=== PATIENT | female | born 1975 ===

== ENCOUNTER 2017-10-26 08:27 | Emergency (ER) | payer BC ==
[2017-10-26 08:40] VITALS: BP 116/69
[2017-10-26] MEDS ORDERED: Ondansetron ODT TAB* 4 MG PO ONE (09:04)
[2017-10-26] MEDS ORDERED: Ondansetron ODT TAB* 4 MG ONE (09:07)
--- NOTE | 2017-10-26 09:10 | UC ---
Cardiac HPI - HPI Summary HPI Summary: WOKE UP 6:30 AM TODAY WITH SHARP PAIN IN BETWEEN SHOULDER BLADES AND HEAVINESS IN CHEST. FEELS SOB DUE TO THE DISCOMFORT AND HAS SIGNIFICANT NAUSEA. NOT WORSE WITH EXERTION. HAD 2 EPISODES WATERY DIARRHEA. FLEW TO [place] 3 DAYS AGO AND FLEW BACK FROM YESTERDAY. IS A SMOKER. - History of Current Complaint Chief Complaint: UCChestPain Stated Complaint: CHEST PAIN DIARRHEA VOMITING Time Seen by Provider: 10/26/17 08:33 Hx Obtained From: Patient Hx Last Menstrual Period: hysterectomy 2007 Onset/Duration: Sudden Onset, Lasting Hours, Still Present Timing: Constant Initial Severity: Moderate Current Severity: Moderate Pain Intensity: 5 Chest Pain Location: Mid Sternal Character: Heaviness Aggravating Factor(s): Nothing Alleviating Factor(s): Nothing Associated Signs & Symptoms: Positive: Chest Pain, Nausea/Vomiting, Back Pain - Allergy/Home Medications Allergies/Adverse Reactions: Allergies Allergy/AdvReac Type Severity Reaction Status Date / Time ibuprofen Allergy Anaphylatic Verified 10/26/17 08:51 Shock levofloxacin [From Levaquin] Allergy Difficulty Verified 10/26/17 08:51 Breathing Penicillins Allergy Hives Verified 10/26/17 08:51 Sulfa (Sulfonamide Allergy Hives Verified 10/26/17 08:51 Antibiotics) Home Medications: Home Medications Topiramate [Topiramate ER 50 mg cap] 50 mg PO QPM 10/26/17 [History Confirmed ] PMH/Surg Hx/FS Hx/Imm Hx Previously Healthy: Yes - Surgical History Surgical History: Yes Surgery Procedure, Year, and Place: TOTAL HYSTERECTOMY, LAPAROSCOPY X 2 - scar tissue - Family History Known Family History: Positive: Cardiac Disease - Social History Alcohol Use: None Substance Use Type: None Smoking Status (MU): Heavy Every Day Tobacco Smoker Type: Cigarettes Amount Used/How Often: <1/2ppd Length of Time of Smoking/Using Tobacco: 25 years Have You Smoked in the Last Year: Yes - Immunization History Most Recent Influenza Vaccination: 2014/2015 Review of Systems Constitutional: Negative Respiratory: Shortness Of Breath Cardiovascular: Chest Pain Gastrointestinal: Diarrhea, Nausea All Other Systems Reviewed And Are Negative: Yes Physical Exam Triage Information Reviewed: Yes Appearance: Well-Nourished, Ill-Appearing - MOD, Pain Distress - MOD Vital Signs: Initial Vital Signs Temp 99.5 F 10/26/17 08:37 Pulse 94 10/26/17 08:37 Resp 18 10/26/17 08:37 BP 116/69 10/26/17 08:37 Pulse Ox 99 10/26/17 08:37 Vital Signs Reviewed: Yes Eyes: Positive: Conjunctiva Clear ENT: Positive: Hearing grossly normal Neck: Positive: Supple Respiratory Exam: Normal Cardiovascular Exam: Normal Abdomen Description: Positive: Soft Musculoskeletal: Positive: No Edema Neurological: Positive: Alert Psychological: Positive: Age Appropriate Behavior Skin: Negative: rashes Diagnostics - EKG Cardiac Rate: NL - 92BPM Cardiac Rhythm: Sinus: Normal Ectopy: None ST Segment: Normal - Assessment/Plan Course Of Treatment: TO [facility] BY PRIVATE CAR. NEED TO R/O UNDERLYING CARDIAC CAUSE, PE - Clinical Impression Provider Diagnoses: CHEST PAIN Discharge - Discharge Plan Condition: Stable Disposition: OTHER Discharge Disposition Comment: TO [facility] ED BY PRIVATE CAR Patient Education Materials: Chest Pain (ED) Referrals: Rochelle Devine MD [Medical Doctor] - Additional Instructions: GO DIRECTLY TO THE [facility] ED FOR FURTHER EVALUATION. YOU HAVE DECLINED AMBULANCE TRANSFER. BE ADVISED THAT BY NOT TRAVELING IN A MONITORED SETTING YOU COULD BE RISKING WORSENING OF YOUR CONDITION THAT COULD POSE A THREAT TO YOUR LIFE, HEALTH AND MEDICAL SAFETY.
== END 2017-10-26 09:17 ==
LOC: UCEAST 08:27
DX: R07.9 Chest pain, unspecified (principal); R06.02 Shortness of breath; R19.7 Diarrhea, unspecified; R11.2 Nausea with vomiting, unspecified; M54.9 Dorsalgia, unspecified; Z90.710 Acquired absence of both cervix and uterus; Z88.6 Allergy status to analgesic agent; Z88.0 Allergy status to penicillin; Z88.2 Allergy status to sulfonamides; F17.210 Nicotine dependence, cigarettes, uncomplicated
CPT/HCPCS: 99212; A9270-GY; G0463

== ENCOUNTER 2017-10-26 09:33 | Emergency (ER) | payer BC ==
[2017-10-26 10:08] LABS: ABS Basophils 0 10^3/ul (0-0.2); ABS Eosinophils 0.1 10^3/ul (0-0.6); ABS Lymphocytes 1.9 10^3/ul (1.0-4.8); ABS Monocytes 0.5 10^3/ul (0-0.8); ABS Neutrophils 6.2 10^3/ul (1.5-7.7); ABS Nucleated RBC 0 10^3/ul; Eosinophil % 0.9 % (0-6); Hematocrit 39 % (35-47); Hemoglobin 13.3 g/dl (12.0-16.0); Lymphocyte % 21.6 % (25-47); Mean Corpuscular HGB Conc 34 g/dl (31-36); Mean Corpuscular Hemoglobin 30 pg (27-31); Mean Corpuscular Volume 89 fL (80-97); Mean Platelet Volume 10 um3 (7.4-10.4); Nucleated Red Blood Cells % 0; Platelet Count 253 10^3/ul (150-450); Red Blood Count 4.39 10^6/ul (4.0-5.4); Red Cell Distribution Width 13 % (10.5-15); White Blood Count 8.7 10^3/ul (3.5-10.8)
[2017-10-26] MEDS ORDERED: Ondansetron INJ* 2 MG/ML VIAL IV ONE (10:09)
[2017-10-26] MEDS ORDERED: Morphine INJ* 4 MG/ML 1 ML CARPUJECT IV ONE (10:09)
[2017-10-26] MEDS ORDERED: Morphine INJ* 4 MG/ML 1 ML SYRINGE (NEW SYRINGE VERSION) ONE (10:25)
[2017-10-26 10:31] LABS: Urine Appearance Clear; Urine Blood Negative (Negative); Urine Color Yellow; Urine Ketones Negative (Negative); Urine Protein Negative (Negative); Urine Specific Gravity 1.006 (1.010-1.030); Urine Urobilinogen Negative (Negative)
[2017-10-26 10:33] LABS: EGFR Non-African American 92.9 (>60)
--- NOTE | 2017-10-26 10:54 | RAD ---
Indication: Sternal chest pain beginning in the upper back at 6:00 AM. Comparison: January 11, 2014 Technique: Upright AP 1024 hours Report: Elevated lung volumes and mild prominence of the interstitial markings. No alveolar consolidation, focal pulmonary lesion, pleural effusion, pneumothorax. The heart, pulmonary vasculature, and mediastinal contours are unremarkable. IMPRESSION: Stigmata of obstructive lung disease. No acute pulmonary or cardiac process evident.
[2017-10-26] MEDS ORDERED: Potassium Chlor TAB* 20 MEQ TAB.ER PO ONE (12:01)
[2017-10-26] MEDS ORDERED: Morphine INJ* 4 MG/ML 1 ML SYRINGE (NEW SYRINGE VERSION) IV PRN (12:49)
[2017-10-26 13:38] VITALS: BP 113/70
--- NOTE | 2017-10-27 18:18 | ED ---
Robert Pinzon Angela, scribed for Ghanshyam Crespo MD on 10/26/17 at 1007 . HPI Chest Pain - HPI Summary HPI Summary: This pt is a 42 y/o female presenting to [facility] by [facility] c/o mid sternum chest pain since this morning. Pt reports she woke up this morning with stabbing pain between her shoulder blades, described as a "knife." Pt notes that as she rolled over on her bed she began to feel chest pain, described as heaviness and located in the mid sternum. Pt notes she got up from bed and had episodes of diarrhea and felt nauseous. Her chest pain radiates up to her throat and feels "like something is stuck." Currently pt describes her chest pain as pressure and rates it 5/10 in severity. Pt notes she has never had chest pain like this before. PMHx: none. FHx: grandfather had [place] at age 50. - History of Current Complaint Chief Complaint: EDChestPainROMI Time Seen by Provider: 10/26/17 09:48 Hx Obtained From: Patient Hx Last Menstrual Period: hysterectomy 2007 Onset/Duration: Started Hours Ago, Atraumatic, Still Present Timing: Lasting Hours Current Severity: Moderate Pain Intensity: 5 Pain Scale Used: 0-10 Numeric Chest Pain Location: Mid Sternal Chest Pain Radiates: Yes Chest Pain Radiates To:: Other - to throat Character: Heaviness, Pressure/Squeezing - pressure Aggravating Factor(s): Nothing Alleviating Factor(s): Nothing Associated Signs and Symptoms: Positive: Chest Pain, Nausea, Back Pain, Other: - diarrhea - Allergy/Home Medications Allergies/Adverse Reactions: Allergies Allergy/AdvReac Type Severity Reaction Status Date / Time ibuprofen Allergy Anaphylatic Verified 10/26/17 08:51 Shock levofloxacin [From Levaquin] Allergy Difficulty Verified 10/26/17 08:51 Breathing Penicillins Allergy Hives Verified 10/26/17 08:51 Sulfa (Sulfonamide Allergy Hives Verified 10/26/17 08:51 Antibiotics) Home Medications: Home Medications Topiramate TAB(*) [Topamax 25 MG tab] 50 mg PO BEDTIME 10/26/17 [History Confirmed 10/26/17] PMH/Surg Hx/FS Hx/Imm Hx Endocrine/Hematology History: Reports: Hx Anemia - IN PAST Denies: Hx Diabetes, Hx Sickle Cell Disease, Hx Thyroid Disease Cardiovascular History: Denies: Hx Hypertension, Hx Pacemaker/ICD, Other Cardiovascular Problems/ Disorders Respiratory History: Denies: Hx Asthma, Hx Chronic Obstructive Pulmonary Disease (COPD), Other Respiratory Problems/Disorders GI History: Denies: Hx Ulcer, Other GI Disorders History: Denies: Other Problems/Disorders Musculoskeletal History: Denies: Other Musculoskeletal History Sensory History: Reports: Hx Contacts or Glasses - GLASSES Denies: Hx Hearing Aid Opthamlomology History: Reports: Hx Contacts or Glasses - GLASSES Neurological History: Denies: Other Neuro Impairments/Disorders Psychiatric History: Reports: Hx Depression Denies: Hx Panic Disorder - Cancer History Hx Chemotherapy: No - Surgical History Surgery Procedure, Year, and Place: TOTAL HYSTERECTOMY, LAPAROSCOPY X 2 - scar tissue Hx Anesthesia Reactions: No Infectious Disease History: No Infectious Disease History: Denies: Hx Clostridium Difficile, Hx Hepatitis, Hx Human Immunodeficiency Virus (HIV), Hx of Known/Suspected MRSA, Hx Shingles, Hx Tuberculosis, Hx Known/ Suspected VRE, Hx Known/Suspected VRSA, History Other Infectious Disease, Traveled Outside the [place] in Last 30 Days - Family History Known Family History: Positive: Cardiac Disease - Grandfather: [place] at 50 y/o - Social History Alcohol Use: None Substance Use Type: Reports: None Smoking Status (MU): Heavy Every Day Tobacco Smoker Type: Cigarettes Amount Used/How Often: <1/2ppd Length of Time of Smoking/Using Tobacco: 25 years Have You Smoked in the Last Year: Yes Review of Systems Negative: Fever, Chills Positive: Chest Pain Positive: Diarrhea, Nausea All Other Systems Reviewed And Are Negative: Yes Physical Exam - Summary Physical Exam Summary: VITAL SIGNS: Reviewed. GENERAL: Patient is a well-developed and nourished female who is lying comfortable in the stretcher. Patient is not in any acute respiratory distress. HEAD AND FACE: No signs of trauma. No ecchymosis, hematomas or skull depressions. No sinus tenderness. EYES: PERRLA, EOMI x 2, No injected conjunctiva, no nystagmus. EARS: Hearing grossly intact. Ear canals and tympanic membranes are within normal limits. MOUTH: Oropharynx within normal limits. NECK: Supple, trachea is midline, no adenopathy, no JVD, no carotid bruit, no c- spine tenderness, neck with full ROM. CHEST: Symmetric, reproducible chest pain in the retrosternal area. LUNGS: Clear to auscultation bilaterally. No wheezing or crackles. CVS: Regular rate and rhythm, S1 and S2 present, no murmurs or gallops appreciated. ABDOMEN: Soft, non-tender. No signs of distention. No rebound no guarding, and no masses palpated. Bowel sounds are normal. EXTREMITIES: FROM in all major joints, no edema, no cyanosis or clubbing. NEURO: Alert and oriented x 3. No acute neurological deficits. Speech is normal and follows commands. SKIN: Dry and warm Triage Information Reviewed: Yes Vital Signs On Initial Exam: Initial Vitals Temp Pulse Resp BP Pulse Ox 98.9 F 85 18 122/64 99 10/26/17 09:36 10/26/17 09:36 10/26/17 09:36 10/26/17 09:36 10/26/17 09:36 Vital Signs Reviewed: Yes Diagnostics - Vital Signs Vital Signs Temp Pulse Resp BP Pulse Ox 10/26/17 09:36 98.9 F 85 18 122/64 99 - Laboratory Lab Results: Lab Results 10/26/17 10/26/17 10/26/17 Range/Units 09:50 10:00 10:00 WBC (3.5-10.8) 10^3/ul RBC (4.0-5.4) 10^6/ul Hgb (12.0-16.0) g/dl Hct (35-47) % MCV (80-97) fL MCH (27-31) pg MCHC (31-36) g/dl RDW (10.5-15) % Plt Count (150-450) 10^3/ul MPV (7.4-10.4) um3 Neut % (Auto) (38-83) % Lymph % (Auto) (25-47) % [place] % (Auto) (1-9) % Eos % (Auto) (0-6) % Baso % (Auto) (0-2) % Absolute Neuts (auto) (1.5-7.7) 10^3/ul Absolute Lymphs (auto) (1.0-4.8) 10^3/ul Absolute Monos (auto) (0-0.8) 10^3/ul Absolute Eos (auto) (0-0.6) 10^3/ul Absolute Basos (auto) (0-0.2) 10^3/ul Absolute Nucleated RBC 10^3/ul Nucleated RBC % APTT (26.0-36.3) seconds Sodium 138 (133-145) mmol/L Potassium 3.4 L (3.5-5.0) mmol/L Chloride 107 (101-111) mmol/L Carbon Dioxide 24 (22-32) mmol/L Anion Gap 7 (2-11) mmol/L BUN 10 (6-24) mg/dL Creatinine 0.69 (0.51-0.95) mg/dL Est GFR ( Amer) 119.4 (>60) Est GFR (Non-Af Amer) 92.9 (>60) BUN/Creatinine Ratio 14.5 (8-20) Glucose 104 H (70-100) mg/dL Lactic Acid (0.5-2.0) mmol/L Calcium 9.5 (8.6-10.3) mg/dL Magnesium 2.0 (1.9-2.7) mg/dL Total Bilirubin 0.50 (0.2-1.0) mg/dL AST 14 (13-39) U/L ALT 10 (7-52) U/L Alkaline Phosphatase 69 (34-104) U/L Total Creatine Kinase 48 (10-223) U/L CK-MB (CK-2) 0.8 (0.6-6.3) ng/mL Troponin I 0.00 (<0.04) ng/mL B-Natriuretic Peptide 27 ( - 100) pg/mL Total Protein 6.9 (6.4-8.9) g/dL Albumin 4.4 (3.2-5.2) g/dL Globulin 2.5 (2-4) g/dL Albumin/Globulin Ratio 1.8 (1-3) TSH 0.74 (0.34-5.60) mcIU/mL Urine Color Yellow Urine Appearance Clear Urine pH 8.0 (5-9) Ur Specific [place] 1.006 L (1.010-1.030) Urine Protein Negative (Negative) Urine Ketones Negative (Negative) Urine Blood Negative (Negative) Urine Nitrate Negative (Negative) Urine Bilirubin Negative (Negative) Urine Urobilinogen Negative (Negative) Ur Leukocyte Esterase Trace H (Negative) Urine WBC (Auto) Trace(0-5/hpf) (Absent) Urine RBC (Auto) Absent (Absent) Ur Squamous Epith Cells Present H (Absent) Urine Bacteria Absent (Absent) Urine Glucose Negative (Negative) 10/26/17 10/26/17 10/26/17 Range/Units 10:00 10:00 10:00 WBC 8.7 (3.5-10.8) 10^3/ul RBC 4.39 (4.0-5.4) 10^6/ul Hgb 13.3 (12.0-16.0) g/dl Hct 39 (35-47) % MCV 89 (80-97) fL MCH 30 (27-31) pg MCHC 34 (31-36) g/dl RDW 13 (10.5-15) % Plt Count 253 (150-450) 10^3/ul MPV 10 (7.4-10.4) um3 Neut % (Auto) 71.1 (38-83) % Lymph % (Auto) 21.6 L (25-47) % [place] % (Auto) 5.9 (1-9) % Eos % (Auto) 0.9 (0-6) % Baso % (Auto) 0.5 (0-2) % Absolute Neuts (auto) 6.2 (1.5-7.7) 10^3/ul Absolute Lymphs (auto) 1.9 (1.0-4.8) 10^3/ul Absolute Monos (auto) 0.5 (0-0.8) 10^3/ul Absolute Eos (auto) 0.1 (0-0.6) 10^3/ul Absolute Basos (auto) 0 (0-0.2) 10^3/ul Absolute Nucleated RBC 0 10^3/ul Nucleated RBC % 0 APTT 33.1 (26.0-36.3) seconds Sodium (133-145) mmol/L Potassium (3.5-5.0) mmol/L Chloride (101-111) mmol/L Carbon Dioxide (22-32) mmol/L Anion Gap (2-11) mmol/L BUN (6-24) mg/dL Creatinine (0.51-0.95) mg/dL Est GFR ( Amer) (>60) Est GFR (Non-Af Amer) (>60) BUN/Creatinine Ratio (8-20) Glucose (70-100) mg/dL Lactic Acid 1.1 (0.5-2.0) mmol/L Calcium (8.6-10.3) mg/dL Magnesium (1.9-2.7) mg/dL Total Bilirubin (0.2-1.0) mg/dL AST (13-39) U/L ALT (7-52) U/L Alkaline Phosphatase (34-104) U/L Total Creatine Kinase (10-223) U/L CK-MB (CK-2) (0.6-6.3) ng/mL Troponin I (<0.04) ng/mL B-Natriuretic Peptide ( - 100) pg/mL Total Protein (6.4-8.9) g/dL Albumin (3.2-5.2) g/dL Globulin (2-4) g/dL Albumin/Globulin Ratio (1-3) TSH (0.34-5.60) mcIU/mL Urine Color Urine Appearance Urine pH (5-9) Ur Specific [place] (1.010-1.030) Urine Protein (Negative) Urine Ketones (Negative) Urine Blood (Negative) Urine Nitrate (Negative) Urine Bilirubin (Negative) Urine Urobilinogen (Negative) Ur Leukocyte Esterase (Negative) Urine WBC (Auto) (Absent) Urine RBC (Auto) (Absent) Ur Squamous Epith Cells (Absent) Urine Bacteria (Absent) Urine Glucose (Negative) 10/26/17 Range/Units 12:15 WBC (3.5-10.8) 10^3/ul RBC (4.0-5.4) 10^6/ul Hgb (12.0-16.0) g/dl Hct (35-47) % MCV (80-97) fL MCH (27-31) pg MCHC (31-36) g/dl RDW (10.5-15) % Plt Count (150-450) 10^3/ul MPV (7.4-10.4) um3 Neut % (Auto) (38-83) % Lymph % (Auto) (25-47) % [place] % (Auto) (1-9) % Eos % (Auto) (0-6) % Baso % (Auto) (0-2) % Absolute Neuts (auto) (1.5-7.7) 10^3/ul Absolute Lymphs (auto) (1.0-4.8) 10^3/ul Absolute Monos (auto) (0-0.8) 10^3/ul Absolute Eos (auto) (0-0.6) 10^3/ul Absolute Basos (auto) (0-0.2) 10^3/ul Absolute Nucleated RBC 10^3/ul Nucleated RBC % APTT (26.0-36.3) seconds Sodium (133-145) mmol/L Potassium (3.5-5.0) mmol/L Chloride (101-111) mmol/L Carbon Dioxide (22-32) mmol/L Anion Gap (2-11) mmol/L BUN (6-24) mg/dL Creatinine (0.51-0.95) mg/dL Est GFR ( Amer) (>60) Est GFR (Non-Af Amer) (>60) BUN/Creatinine Ratio (8-20) Glucose (70-100) mg/dL Lactic Acid (0.5-2.0) mmol/L Calcium (8.6-10.3) mg/dL Magnesium (1.9-2.7) mg/dL Total Bilirubin (0.2-1.0) mg/dL AST (13-39) U/L ALT (7-52) U/L Alkaline Phosphatase (34-104) U/L Total Creatine Kinase (10-223) U/L CK-MB (CK-2) (0.6-6.3) ng/mL Troponin I 0.00 (<0.04) ng/mL B-Natriuretic Peptide ( - 100) pg/mL Total Protein (6.4-8.9) g/dL Albumin (3.2-5.2) g/dL Globulin (2-4) g/dL Albumin/Globulin Ratio (1-3) TSH (0.34-5.60) mcIU/mL Urine Color Urine Appearance Urine pH (5-9) Ur Specific [place] (1.010-1.030) Urine Protein (Negative) Urine Ketones (Negative) Urine Blood (Negative) Urine Nitrate (Negative) Urine Bilirubin (Negative) Urine Urobilinogen (Negative) Ur Leukocyte Esterase (Negative) Urine WBC (Auto) (Absent) Urine RBC (Auto) (Absent) Ur Squamous Epith Cells (Absent) Urine Bacteria (Absent) Urine Glucose (Negative) Result Diagrams: 10/26/17 10:00 10/26/17 10:00 Lab Statement: Any lab studies that have been ordered have been reviewed, and results considered in the medical decision making process. - Radiology Chest XR Xray Interpretation: Positive (See Comments) - IMPRESSION: Stigmata of obstructive lung disease. No acute pulmonary or cardiac process evident. Dr. Crespo has reviewed this radiology report. Radiology Interpretation Completed By: Radiologist - EKG 09:41 Cardiac Rate: NL EKG Rhythm: Sinus Rhythm - at 77 bpm EKG Interpretation: No ST elevation. Normal axis. EKG Comparison: No Significant Change - similar to prior EKG on 08/23/14. Chest Pain Course/Dx - Course Assessment/Plan: This pt is a 42 y/o female presenting to [facility] referred by [facility] c/o mid sternum chest pain since this morning. Pt reports she woke up this morning with stabbing pain between her shoulder blades, described as a "knife." Pt notes that as she rolled over on her bed she began to feel chest pain, described as heaviness and located in the mid sternum. Pt notes she got up from bed and had episodes of diarrhea and felt nauseous. Her chest pain radiates up to her throat and feels "like something is stuck." Currently pt describes her chest pain as pressure and rates it 5/10 in severity. Pt notes she has never had chest pain like this before. Test results without any significant abnormalities except for potassium of 3.4, for which he was given potassium chloride. Urinalysis is negative for UTI. Chest XR: Stigmata of obstructive lung disease. No acute pulmonary or cardiac process evident. Pt had two troponins, 4 hours apart, which are both negative. Pt was given morphine for the pain and her symptoms improved. Therefore, pt will be discharged home with follow up from her PCP. Pt is hemodynamically stable, alert and oriented x3. She was instructed to return to the ED for any worsening or new symptoms. - Chest Pain Differential Diagnosis/HQI/PQRI: Acute [place], ACS, Angina, CHF, Chest Wall, GI Disease, Lower Respiratory Infection - Diagnoses Provider Diagnoses: Atypical chest pain Discharge - Discharge Plan Condition: Stable Disposition: HOME Patient Education Materials: Chest Pain (ED) Referrals: No Primary Care Phys,NOPCP [Primary Care Provider] - [facility] REFERRAL [Outside] - 3 Days Additional Instructions: Please follow up with your primary care provider. RETURN TO THE ED FOR ANY WORSENING SYMPTOMS. The documentation as recorded by the Robert holliday Angela accurately reflects the service I personally performed and the decisions made by me, Ghanshyam Crespo MD.
== END 2017-10-26 13:37 | disposition home or self-care (01) ==
LOC: ED 09:33
DX: R07.89 Other chest pain (principal); F17.210 Nicotine dependence, cigarettes, uncomplicated; Z88.6 Allergy status to analgesic agent; Z88.3 Allergy status to other anti-infective agents; Z88.0 Allergy status to penicillin; Z88.2 Allergy status to sulfonamides
CPT/HCPCS: 36415; 71045; 80053; 81003; 81015; 82550; 82553; 83605; 83735; 83880; 84443; 84484; 85025; 85730; 87086; 93005; 96374; 96375; 99283; A9270-GY; J2270; J2405

== ENCOUNTER 2018-10-28 07:59 | Emergency (ER) | payer BC ==
[2018-10-28 08:15] VITALS: BP 127/78
[2018-10-28 08:33] LABS: Influenza A Molecular NEGATIVE (Negative); Influenza B Molecular NEGATIVE (Negative)
--- NOTE | 2018-10-28 09:28 | UC ---
Respiratory Complaint HPI - HPI Summary HPI Summary: 2-3 DAYS OF HEADACHE, NAUSEA, EAR FULLNESS AND FATIGUE. ALSO HAS POSTNASAL DRAINAGE BUT NO SIGNIFICANT COUGH. NO FEVER. MIGRAINE MEDICINE NOT WORKING. - History of Current Complaint Chief Complaint: UCGeneralIllness Stated Complaint: POSS FLU Time Seen by Provider: 10/28/18 08:05 Hx Obtained From: Patient Hx Last Menstrual Period: hysterectomy 2007 Onset/Duration: Gradual Onset, Lasting Days, Still Present Timing: Constant Severity Initially: Moderate Severity Currently: Moderate Pain Intensity: 4 Pain Scale Used: 0-10 Numeric Aggravating Factors: Nothing Alleviating Factors: Nothing Associated Signs And Symptoms: Positive: Nasal Congestion. Negative: Dyspnea, Fever, Chills, Wheezing - Allergies/Home Medications Allergies/Adverse Reactions: Allergies Allergy/AdvReac Type Severity Reaction Status Date / Time ibuprofen Allergy Anaphylatic Verified 10/28/18 08:12 Shock levofloxacin [From Levaquin] Allergy Difficulty Verified 10/28/18 08:12 Breathing Penicillins Allergy Hives Verified 10/28/18 08:12 Sulfa (Sulfonamide Allergy Hives Verified 10/28/18 08:12 Antibiotics) Home Medications: Home Medications Guaifenesin/Dextromethorphan [Robitussin Cough-Chest Dm Liq] 1 liq PO ONCE PRN 10/28/18 [History Confirmed 10/28/18] PMH/Surg Hx/FS Hx/Imm Hx Neurological History: Migraine - Surgical History Surgical History: Yes Surgery Procedure, Year, and Place: TOTAL HYSTERECTOMY, LAPAROSCOPY X 2 - scar tissue - Family History Known Family History: Positive: Cardiac Disease - Grandfather: [place] at 50 y/o - Social History Alcohol Use: None Substance Use Type: None Smoking Status (MU): Heavy Every Day Tobacco Smoker Type: Cigarettes Amount Used/How Often: <1/2ppd Length of Time of Smoking/Using Tobacco: 25 years Have You Smoked in the Last Year: Yes Household Exposure Type: Cigarettes - Immunization History Most Recent Influenza Vaccination: 2014/2015 Review of Systems All Other Systems Reviewed And Are Negative: Yes Constitutional: Positive: Fatigue ENT: Positive: Ear Ache, Nasal Discharge Respiratory: Positive: Negative Cardiovascular: Positive: Negative Gastrointestinal: Positive: Nausea Neurological: Positive: Headache Physical Exam Triage Information Reviewed: Yes Appearance: No Pain Distress, Well-Nourished, Ill-Appearing - MILD Vital Signs: Initial Vital Signs Temp 99.1 F 10/28/18 08:08 Pulse 108 10/28/18 08:08 Resp 18 10/28/18 08:08 BP 127/78 10/28/18 08:08 Pulse Ox 99 10/28/18 08:08 Laboratory Tests 10/28/18 08:21 Influenza A (Rapid) Negative Influenza B (Rapid) Negative Vital Signs Reviewed: Yes Eyes: Positive: Conjunctiva Clear ENT: Positive: Hearing grossly normal, Pharynx normal, TMs normal Neck: Positive: Supple, Nontender, No Lymphadenopathy Respiratory Exam: Normal Cardiovascular: Positive: Tachycardia Abdomen Description: Positive: Soft Musculoskeletal: Positive: No Edema Neurological: Positive: Alert Psychological: Positive: Age Appropriate Behavior Skin: Negative: Rashes UC Diagnostic Evaluation - Laboratory O2 Sat by Pulse Oximetry: 99 Respiratory Course/Dx - Differential Dx/Diagnosis Provider Diagnosis: Acute viral syndrome Discharge - Sign-Out/Discharge Documenting (check all that apply): Patient Departure All imaging exams completed and their final reports reviewed: No Studies - Discharge Plan Condition: Stable Disposition: HOME Patient Education Materials: Viral Syndrome (ED) Forms: *Work Release Referrals: No Primary Care Phys,NOPCP [Primary Care Provider] - Additional Instructions: FLU SWAB NEGATIVE. YOUR SYMPTOMS ARE STILL LIKELY VIRALLY MEDIATED AND SHOULD RESOLVE ON THEIR OWN WITH TIME. NO INDICATION FOR ANTIBIOTICS AT PRESENT. REST, HYDRATE, OTC MEDS NEEDED. SEEK FOLLOW-UP IF YOU ARE NOT IMPROVING OVER THE NEXT 1-2 WEEKS. USE OTC AFRIN FOR NASAL CONGESTION. 2 SPRAYS IN EACH NOSTRIL TWICE DAILY NEEDED. DO NOT USE FOR MORE THAN 3-4 DAYS IN A ROW TO PREVENT DEVELOPING REBOUND CONGESTION. - Billing Disposition and Condition Condition: STABLE Disposition: Home
== END 2018-10-28 09:25 | disposition home or self-care (01) ==
LOC: UCEAST 07:59
DX: B34.9 Viral infection, unspecified (principal); Z88.6 Allergy status to analgesic agent; Z88.1 Allergy status to other antibiotic agents; Z88.0 Allergy status to penicillin; Z88.2 Allergy status to sulfonamides; F17.210 Nicotine dependence, cigarettes, uncomplicated
CPT/HCPCS: 99211; G0463

== ENCOUNTER 2019-03-29 15:58 | Emergency (ER) | payer BC ==
[2019-03-29 17:41] VITALS: BP 118/77
--- NOTE | 2019-03-29 17:54 | UC ---
Lower Extremity/Ankle HPI - HPI Summary HPI Summary: PT states 2 nights ago stubbed left 2nd and 3rd toe on couch walking in dark. PT states since this time has progressive pain, swelling. pt states pain worse with walking. Took analgesia yesterday - none today. No ice. pt states when looks down at foot while walking it appears "white" at the base of 2/3 toes - toes red/pink No ecchymosis + focal edema. no other injuries meds reviewed, not - History of Current Complaint Chief Complaint: UCLowerExtremity Stated Complaint: POSS BROKEN TOE Time Seen by Provider: 03/29/19 17:39 Hx Obtained From: Patient Hx Last Menstrual Period: hysterectomy 2008 ?: No Pain Intensity: 4 - Allergies/Home Medications Allergies/Adverse Reactions: Allergies Allergy/AdvReac Type Severity Reaction Status Date / Time ibuprofen Allergy Anaphylatic Verified 03/29/19 16:17 Shock levofloxacin [From Levaquin] Allergy Difficulty Verified 03/29/19 16:17 Breathing Penicillins Allergy Hives Verified 03/29/19 16:17 Sulfa (Sulfonamide Allergy Hives Verified 03/29/19 16:17 Antibiotics) Home Medications: Home Medications NK [No Home Medications Reported] 03/29/19 [History Confirmed 03/29/19] PMH/Surg Hx/FS Hx/Imm Hx Previously Healthy: Yes - Surgical History Surgical History: Yes Surgery Procedure, Year, and Place: TOTAL HYSTERECTOMY, LAPAROSCOPY X 2 - scar tissue - Family History Known Family History: Positive: Cardiac Disease - Grandfather: [place] at 50 y/o, Non -Contributory - Social History Occupation: Employed Full-time Lives: With Family Alcohol Use: Rare Substance Use Type: None Smoking Status (MU): Light Every Day Tobacco Smoker Type: Cigarettes Amount Used/How Often: <1/2ppd Length of Time of Smoking/Using Tobacco: 25 years Have You Smoked in the Last Year: Yes Household Exposure Type: Cigarettes - Immunization History Most Recent Influenza Vaccination: 2014/2015 Review of Systems All Other Systems Reviewed And Are Negative: Yes Constitutional: Positive: Negative Skin: Positive: Other - skin blanching base 2/3 toe right foot s/p trauma Physical Exam - Summary Physical Exam Summary: Vital Signs Reviewed: Yes A+Ox3, no distress Eyes: Conjunctiva Clear ENT: Hearing grossly normal neck: supple Respiratory: Positive: No respiratory distress, No accessory muscle use Cardiovascular: skin color reflect adequate perfusion 2+ DP, PT CBT < 2 sec all digits. Musculoskeletal Exam: + SLE RLE, + flext/ext ankle + movement toes with pain base 2nd/4rd toes. mild edema no ecchymposis no crepitus Neurological: Positive: Alert, ambulates with limp, + sensation throughout Psychological: Positive: Normal Response To provider Skin: Positive: no rash, no ecchymosis Triage Information Reviewed: Yes Vital Signs: Initial Vital Signs Temp 99.8 F 03/29/19 16:12 Pulse 114 03/29/19 16:12 Resp 18 03/29/19 16:12 BP 118/77 03/29/19 16:12 Pulse Ox 100 03/29/19 16:12 Diagnostics - Radiology No standard instances Radiology Interpretation Completed By: ED Physician - no fx Re-Evaluation - Re-Evaluation First Eval Comment: reviewed xray - no fracture my read - pt aware prelime. ice. elevated. crutches. motrin/apap. post op shoe Lower Extremity Course/Dx - Course Course Of Treatment: PT presents with injury to right 2nd / 3rd toe after stubbing non couch 2 days ago. pt with progressive pain, swelling and pain. No paresthesia. States worse wth walking no analgesia today On exam, pain base 2/3 toe on right will image - pt aware prelim tonight ice elevate motrin/aoao - Differential Dx/Diagnosis Provider Diagnosis: Foot contusion Discharge - Sign-Out/Discharge Documenting (check all that apply): Patient Departure All imaging exams completed and their final reports reviewed: No - Discharge Plan Condition: Stable Disposition: HOME Patient Education Materials: Foot Contusion (ED), Foot Sprain (ED) Referrals: [facility] [Provider Group] No Primary Care Phys,NOPCP [Primary Care Provider] - Additional Instructions: -wear hard sole support shoe for comfort -apply ice (20 min at a time) every 2-3 hours for the next 2 days -use crutches until you can walk normally without a limp -Elevate your leg - this will help with swelling and pain - Alternate ibuprofen (advil, Motrin) 600mg and tylenol every 3 hours for pain. Take with food. Do NOT take for more than 4-5 days -Contact your doctor or the sports medicine provider if you continue to have pain or any other concerns. Contact your doctor or return with questions or concerns - Billing Disposition and Condition Condition: STABLE Disposition: Home
--- NOTE | 2019-03-30 10:45 | UC ---
- Progress Note Progress Note: Patient Name: SPENCER YEE Medical Record#: [id number] Ordering Physician: Yasmeen Abrahma MD Acct.#: [id number] : 1975 Age: 44 Sex: F Location: [facility] Exam Date: 03/29/19 1735 ADM Status: DEP ER Order Information: TOE RIGHT 3RD Accession Number: [id number] CPT: 76713 INDICATION: Right third toe injury. TECHNIQUE: 3 views of the right third toe were obtained. FINDINGS: The bones are in normal alignment. No fracture is seen. Joint spaces appear maintained. IMPRESSION: NO EVIDENCE FOR FRACTURE. R0 Preliminary Imaging Read R0 <Electronically signed by Kel Og MD in OV> 03/30/19700 Dictated By: Kel Og MD Dictated Date/Time: 03/30/19700 Transcribed Date/Time: 03/30/19699 Copy to: CC:Yasmeen Abraham MD; No Primary Care Phys,NOPCP Imaging - [facility] Imaging - [facility] [address] [address] ph ([phone]) ph ([phone]) ph ([phone]) This report is only to be considered final once signed by the Provider(s) as displayed in the "<Electronically Signed by >" field (s). Absence of a signature indicates the report is in a draft status and still needs to be finalized. In the event this document was created by someone other than the signing Provider, the individual initiating the document will be listed in the "Entered by:" or "Dictated by:" jaime. 1 of 1 Patient Name: SPENCER YEE Medical Record#: [id number] Ordering Physician: Yasmeen Abraham MD Acct.#: [id number] : 1975 Age: 44 Sex: F Location: [facility] Exam Date: 03/29/191734 ADM Status: DEP ER Order Information: TOE RIGHT 2ND Accession Number: [id number] CPT: 99763 INDICATION: Right second toe injury. TECHNIQUE: 3 views of the right second toe were obtained. FINDINGS: The bones are in normal alignment. No fracture is seen. Joint spaces appear maintained. IMPRESSION: NO EVIDENCE FOR FRACTURE. R0 Preliminary Imaging Read R0 <Electronically signed by Kel Og MD in OV> 03/30/19699 Dictated By: Kel Og MD Dictated Date/Time: 03/30/19699 Transcribed Date/Time: 03/30/19 0658 Copy to: CC:Yasmeen Abraham MD; No Primary Care Phys,NOPCP Imaging - [facility] Imaging - [facility] [address] [place] [address] ph ([phone]) ph ([phone]) ph ([phone]) This report is only to be considered final once signed by the Provider(s) as displayed in the "<Electronically Signed by >" field (s). Absence of a signature indicates the report is in a draft status and still needs to be finalized. In the event this document was created by someone other than the signing Provider, the individual initiating the document will be listed in the "Entered by:" or "Dictated by:" jaime. 1 of 1 Course/Dx - Diagnoses Provider Diagnoses: Foot contusion Discharge - Sign-Out/Discharge Documenting (check all that apply): Patient Departure All imaging exams completed and their final reports reviewed: Yes - Discharge Plan Condition: Stable Disposition: HOME Patient Education Materials: Foot Contusion (ED), Foot Sprain (ED) Referrals: [facility] [Provider Group] No Primary Care Phys,NOPCP [Primary Care Provider] - Additional Instructions: -wear hard sole support shoe for comfort -apply ice (20 min at a time) every 2-3 hours for the next 2 days -use crutches until you can walk normally without a limp -Elevate your leg - this will help with swelling and pain - Alternate ibuprofen (advil, Motrin) 600mg and tylenol every 3 hours for pain. Take with food. Do NOT take for more than 4-5 days -Contact your doctor or the sports medicine provider if you continue to have pain or any other concerns. Contact your doctor or return with questions or concerns - Billing Disposition and Condition Condition: STABLE Disposition: Home
== END 2019-03-29 19:07 | disposition home or self-care (01) ==
LOC: UCEAST 15:58
DX: S90.32XA Contusion of left foot, initial encounter (principal); W22.03XA Walked into furniture, initial encounter; Y92.019 Unspecified place in single-family (private) house as the place of occurrence of the external cause; F17.210 Nicotine dependence, cigarettes, uncomplicated; Z88.0 Allergy status to penicillin; Z88.2 Allergy status to sulfonamides
CPT/HCPCS: 99213; G0463

== ENCOUNTER 2019-11-12 17:43 | Emergency (ER) | payer BC ==
[2019-11-12 18:04] VITALS: BP 119/80
--- NOTE | 2019-11-12 18:33 | UC ---
Hand/Wrist HPI - HPI Summary HPI Summary: 44-year-old woman comes in with a chief complaint of left thumb pain after falling this morning. Pain is worse in the proximal left thumb. Pain is worse with movement. Patient's been putting ice on it which does help. No complaint of any weakness or numbness. Denies any wrist pain. Denies any pain in the other fingers of the hand. Patient does have an abrasion and ecchymosis at the base of the thumb. - History Of Current Complaint Chief Complaint: UCUpperExtremity Stated Complaint: L HAND INJURY Time Seen by Provider: 11/12/19 18:06 Hx Last Menstrual Period: hysterectomy Pain Intensity: 5 - Allergies/Home Medications Allergies/Adverse Reactions: Allergies Allergy/AdvReac Type Severity Reaction Status Date / Time ibuprofen Allergy Anaphylatic Verified 11/12/19 18:05 Shock levofloxacin [From Levaquin] Allergy Difficulty Verified 11/12/19 18:05 Breathing Penicillins Allergy Hives Verified 11/12/19 18:05 Sulfa (Sulfonamide Allergy Hives Verified 11/12/19 18:05 Antibiotics) Home Medications: Home Medications Melatonin 5 mg PO 11/12/19 [History] PMH/Surg Hx/FS Hx/Imm Hx Previously Healthy: Yes - Surgical History Surgical History: Yes Surgery Procedure, Year, and Place: TOTAL HYSTERECTOMY, LAPAROSCOPY X 2 - scar tissue - Family History Known Family History: Positive: Cardiac Disease - Grandfather: [place] at 50 y/o, Non -Contributory - Social History Alcohol Use: Rare Substance Use Type: None Smoking Status (MU): Light Every Day Tobacco Smoker Type: Cigarettes Amount Used/How Often: <1/2ppd Length of Time of Smoking/Using Tobacco: 25 years Have You Smoked in the Last Year: Yes Household Exposure Type: Cigarettes - Immunization History Most Recent Influenza Vaccination: 2014/2015 Review of Systems All Other Systems Reviewed And Are Negative: Yes Constitutional: Positive: Negative Skin: Positive: Other - SEE HPI Eyes: Positive: Negative ENT: Positive: Negative Respiratory: Positive: Negative Cardiovascular: Positive: Negative Gastrointestinal: Positive: Negative Motor: Positive: Negative Neurovascular: Positive: Negative Musculoskeletal: Positive: Other: - SEE HPI Neurological/Mental Status: Positive: Negative Psychological: Positive: Negative Is Patient Immunocompromised?: No Physical Exam Triage Information Reviewed: Yes Appearance: Well-Appearing, No Pain Distress, Well-Nourished Vital Signs: Initial Vital Signs Temp 99.2 F 11/12/19 17:57 Pulse 90 11/12/19 17:57 Resp 16 11/12/19 17:57 BP 119/80 11/12/19 17:57 Pulse Ox 100 11/12/19 17:57 Vital Signs Reviewed: Yes Eye Exam: Normal Eyes: Positive: Conjunctiva Clear Neck: Positive: Supple Respiratory: Positive: No respiratory distress Musculoskeletal: Positive: Other: - There is some swelling and tenderness to palpation with ecchymosis partial-thickness abrasion palmar aspect of the proximal left thumb. This area is tender to palpation. Finger has full range of motion normal sensation and normal strength. No snuffbox tenderness. Rest of the wrist and hand are nontender with full range of motion and normal sensation. Neurological: Positive: Alert Psychological: Positive: Age Appropriate Behavior Skin: Positive: Other - [id number] abrasion and ecchymosis place of left thumb on the palmar aspect. Hand/Wrist Course/Dx - Course Course Of Treatment: I discussed the x-rays with the patient I do not see any fractures radiologist reading is pending. Patient is placed a thumb spica splint but nursing here in clinic patient Norvasc intact after placement of thumb spica splint. Plan is ice anti-inflammatories use the splint as needed and follow-up with the orthopedic and specialist not completely improved. - Differential Dx/Diagnosis Provider Diagnosis: Pain of left thumb Discharge ED - Sign-Out/Discharge Documenting (check all that apply): Patient Departure All imaging exams completed and their final reports reviewed: No - Discharge Plan Condition: Stable Disposition: HOME Patient Education Materials: Finger Sprain (ED) Referrals: Valerie Tavera MD [Medical Doctor] - Dev Hillman MD [Medical Doctor] - Additional Instructions: FOLLOW UP WITH THE ORTHOPEDIC HAND SPECIALIST IF NOT COMPLETELY IMPROVED. GET REEVALUATED SOONER IF NOT IMPROVED OR WORSE OR ANY QUESTIONS OR CONCERNS. - Billing Disposition and Condition Condition: STABLE Disposition: Home
--- NOTE | 2019-11-13 07:16 | UC ---
- Progress Note Progress Note: Final radiologist reading of left thumb x-ray from November 12, 2019 comes back as no fracture. Provider interpretation same date is the same therefore there is no discrepancy. Course/Dx - Diagnoses Provider Diagnoses: Pain of left thumb Discharge ED - Sign-Out/Discharge Documenting (check all that apply): Patient Departure All imaging exams completed and their final reports reviewed: Yes - Discharge Plan Condition: Stable Disposition: HOME Patient Education Materials: Finger Sprain (ED) Referrals: Dev Hillman MD [Medical Doctor] - Valerie Tavera MD [Medical Doctor] - Additional Instructions: FOLLOW UP WITH THE ORTHOPEDIC HAND SPECIALIST IF NOT COMPLETELY IMPROVED. GET REEVALUATED SOONER IF NOT IMPROVED OR WORSE OR ANY QUESTIONS OR CONCERNS. - Billing Disposition and Condition Condition: STABLE Disposition: Home
== END 2019-11-12 18:45 | disposition home or self-care (01) ==
LOC: UCEAST 17:43
DX: M79.645 Pain in left finger(s) (principal); Z88.6 Allergy status to analgesic agent; Z88.1 Allergy status to other antibiotic agents; Z88.0 Allergy status to penicillin; Z88.2 Allergy status to sulfonamides; F17.210 Nicotine dependence, cigarettes, uncomplicated
CPT/HCPCS: 99212; G0463